=== PATIENT | female | born 1990 | race Caucasian/White ===

== ENCOUNTER 2019-02-26 10:28 | Outpatient (CLI) | payer BC ==
--- NOTE | 2019-02-26 12:59 | CT ---
CT OF THE ABDOMEN AND PELVIS WITH IV CONTRAST INDICATION: Wound within the umbilical region currently draining pus COMPARISON: None FINDINGS: ABDOMEN: Lung bases: Clear Liver: No focal lesion. Gallbladder: Normal appearing. Pancreas: Normal. Adrenal glands: Normal. Spleen: Normal. Kidneys and ureters: Normal. No hydronephrosis. Vasculature: Normal. Lymph nodes:No lymphadenopathy. Free fluid in abdomen:No free fluid is evident. PELVIS: Small and large bowel: Normal Appendix:Not seen Bladder: Normal. Rectal and perirectal soft tissues:Normal. Reproductive structures: IUD and bilateral follicular cysts Free fluid in pelvis: No free fluid is evident. Lymphadenopathy pelvis: No lymphadenopathy is evident. 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 No definite vianca umbilical fluid collection is evident. IMPRESSION: 1. Mild soft tissue nodularity seen in the region of the umbilicus. No drainable fluid collection is evident within the para umbilical region. 2. IUD in bilateral follicular cysts.
== END 2019-02-26 10:29 | disposition home or self-care (01) ==
LOC: SCSCT 10:28
PROVIDERS: ATTEND Student in an Organized Health Care Education/Training Program
DX: R19.00 Intra-abdominal and pelvic swelling, mass and lump, unspecified site (principal); N83.02 Follicular cyst of left ovary; N83.01 Follicular cyst of right ovary; R19.8 Other specified symptoms and signs involving the digestive system and abdomen
CPT/HCPCS: 74177

== ENCOUNTER 2019-03-19 07:42 | Day surgery (SDC) | payer BC ==
[2019-03-18 10:24] VITALS: BMI 28.3
[2019-03-19] MEDS ORDERED: Lidocaine 1% w/Epinephrine 1:100K 20 ML VIAL ONE (08:35)
[2019-03-19] MEDS ORDERED: Bupivacaine 0.25% HCL 30 ML VIAL ONE (08:35)
[2019-03-19] MEDS ORDERED: Ketorolac Tromethamine 30 MG/ML VIAL ONE (08:37)
[2019-03-19 09:03] LABS: #Eosinphils 0.3 thou/uL (0.0-0.7); #Lymphocytes 1.9 thou/uL (1.20-3.40); #Monocytes 0.4 thou/uL (0.11-0.59); #Neutrophils 4.8 thou/uL (1.40-6.50); %Basophils 0.1 % (0.0-1.0); %Eosinophils 3.8 % (0.0-10.0); %Lymphocytes 25.9 % (21.0-51.0); %Monocytes 5.6 % (0.0-10.0); %Neutrophils 64.6 % (42.0-75.0); Mean Corpuscular HGB CONC 34.3 g/dL (32.0-36.0); Mean Corpuscular Hemoglobin 31.4 pg (27.0-31.0); Mean Corpuscular Volume 91.8 fL (78.0-98.0); Mean Platelet Volume 6.2 fL (7.4-10.4); Platelet Count 291 thou/uL (130-400); RBC Distribution Width 10.9 % (11.5-14.5); Red Blood Cell (RBC) Count 4.45 mill/uL (4.20-5.40); White Blood Cell (WBC) Count 7.4 thou/uL (4.8-10.8)
[2019-03-19 09:08] LABS: BHCG - Serum Negative (NEGATIVE); Pregs Control Background? CLEAR/WHITE (CLR/WHITE); Pregs Control Bar Appear? YES (CONTROL BAR)
[2019-03-19] MEDS ORDERED: Midazolam HCl 2 mg/2 ml Vial ONE ×2 (09:18→09:28)
[2019-03-19] MEDS ORDERED: Fentanyl 100 MCG/2 ML VIAL ONE (09:19)
[2019-03-19] MEDS ORDERED: Famotidine/PF 20 mg/2ml Vial ONE (09:19)
[2019-03-19 09:24] LABS: Anion Gap 12 mmol/L (10-20); BUN (Urea Nitrogen) 19 mg/dL (7.0-18.7); Calc. Creatinine Clearance 130 mL/min (70-130); Calcium 9.4 mg/dL (7.8-10.44); Carbon Dioxide 22 mmol/L (22-29); Chloride 108 mmol/L (98-107); Estimated GFR-MDRD 90; Glucose 97 mg/dL (70-105); Sodium 138 mmol/L (136-145)
[2019-03-19] MEDS ORDERED: Esmolol 100 MG/10 ML VIAL ONE (10:03)
[2019-03-19] MEDS ORDERED: PROPOFOL 200 MG/20 ML VIAL ONE (10:03)
[2019-03-19] MEDS ORDERED: Ondansetron PF 4 MG/2 ML Vial ONE (10:03)
[2019-03-19] MEDS ORDERED: Bacitracin Zinc Ointment 30 gm TUBE ONE (10:28)
[2019-03-19] MEDS ORDERED: traMADol HCl 50 MG TAB ONE (12:33)
--- NOTE | 2019-03-19 17:52 | OP ---
DATE OF PROCEDURE: 03/19/2019 PREOPERATIVE DIAGNOSIS: Umbilical pain and drainage with subumbilical mass. 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 PROCEDURES PERFORMED: Umbilical exploration with partial umbilical excision and resection of subumbilical 2 cm tumor and repair of umbilical hernia. ANESTHESIA: General with laryngeal mask airway. INDICATIONS: The patient is a 28-year-old white female. She presented with a progressive history of periumbilical pain. She had also noted a nodule on the left side of her umbilicus, this seemed to be enlarging. She has had intermittent drainage from this as well. She presents at this time for umbilical exploration and excision of the palpable nodule. DESCRIPTION OF OPERATION: Informed consent was obtained. The patient was taken to the operating room, where general anesthesia was obtained with the patient in supine position. Abdomen was prepped with ChloraPrep and draped in sterile fashion. Local anesthetic was infiltrated using 0.25% Marcaine with epinephrine. Curvilinear infraumbilical incision was created, and dissection was carried through skin and subcutaneous tissue. Dissection was carried down to the fascia. There was an easily palpable firm nodular mass involving the inferior aspect of her umbilicus. I initially inspected to see if I can dissect this off the umbilical skin and I could not easily. I, therefore, turned my attention to the inferior aspect of the umbilicus and this mass. I carefully dissected this incontinuity off the underlying fascia. As it was elevated off the fascia, there was a fascial defect measuring about 6 mm. This defect was dissected. There was no evidence of other visible or palpable lesion at the level of the defect and was closed with a single [id number] suture of #1 Maxon. Attention was turned to the umbilicus. I initially dissected the mass off the underlying umbilical dermis, attempting to avoid damage to the umbilical skin where possible. This proved to be a 2 cm solid mass. It was entirely excised and passed off the field. I examined the umbilicus from the cutaneous side and noted the lesion that was eroding through the skin. This was incontinuity with the second nodular mass that had been associated with the initial lesion. This was excised in a full-thickness fashion, ellipsing a small amount of umbilical skin. This was essentially from the apex of the umbilicus. The defect created was about 7 mm. This was passed off the field as a separate specimen. The cutaneous defect was closed with a running suture of 4-0 Monocryl. The wound was copiously irrigated, and all irrigant was aspirated. There was no other visible or palpable abnormality external to the fascia or associated with the umbilicus. The umbilicus was secured down to the fascia with interrupted sutures of 3-0 Vicryl. Wound was closed in layers of 3-0 and 4-0 Monocryl. Additional local anesthetic was instilled in the wound during closure. Dermabond was placed externally. A compression dressing was then affected using a cotton ball with antibiotic ointment in the base of the appendix followed by additional cotton balls, and a Tegaderm held in place with Mastisol. The air was aspirated from the cotton balls to create a pressure effect. There were no complications. Blood loss was negligible. The patient tolerated the procedure well and was taken to Recovery in stable condition. Job ID: [id number]
== END 2019-03-19 12:45 | disposition home or self-care (01) ==
LOC: SDC 07:42
PROVIDERS: ATTEND Specialist
PROC: 0WQF0ZZ Repair Abdominal Wall, Open Approach (ICD-10-PCS; principal; 2019-03-19)
PROC: 0WBF0ZZ Excision of Abdominal Wall, Open Approach (ICD-10-PCS; principal; 2019-03-19)
DX: K42.9 Umbilical hernia without obstruction or gangrene (principal); N80.8 Other endometriosis; Z79.2 Long term (current) use of antibiotics
CPT/HCPCS: 80048; 84703; 85025; 88305; J0131; J0690; J1885; J2250; J2405; J2704; J3010; S0020; S0028

== ENCOUNTER 2021-08-09 13:46 | Outpatient (CLI) | payer BC | END 2021-08-09 13:47 | disposition home or self-care (01) | LOC: BICULT 13:46 | PROVIDERS: ATTEND Student in an Organized Health Care Education/Training Program | DX: N63.11 Unspecified lump in the right breast, upper outer quadrant (principal); N63.21 Unspecified lump in the left breast, upper outer quadrant ==